=== PATIENT | male | born 1975 | race Two or more races ===

== ENCOUNTER 2019-01-12 16:06 | Emergency (ER) | payer OTHER ==
[~2019-01-12] VITALS: Ht 193 cm; Wt 96.9 kg
--- NOTE | 2019-01-12 16:53 | NUR ---
PT HAS CO OF RIGHT LEG SWELLING SINCE THURSDAY. PT WAS SEEN BY MEDIC IN HIS FACILITY AND STATES "WANT TO RULE OUT A DVT". RED SWOLLEN AREA ON BAKER OUTLINED W MARKER. LEFT LEG EDEMA GREATER THAN RIGHT LEG. PT STATES THERE IS ONLY PAIN WHEN WALKING. PEDAL PULSES PRESENT. SENSATION INTACT. PT RESTING COMFORTABLE. SUPERVISED BY LAW ENFORCEMENT.
[2019-01-12 16:56] LABS: BASOPHILS # (AUTO) 0.09 x10^3/uL (0-0.1); BASOPHILS % (AUTO) 1 % (0-1); EOSINOPHILS # (AUTO) 0.23 x10^3/uL (0-0.4); EOSINOPHILS % (AUTO) 2 % (1-7); LYMPHOCYTES # (AUTO) 2.48 x10^3/uL (1-3.4); LYMPHOCYTES % (AUTO) 26 % (22-44); MD NO; MEAN CORPUSCULAR HEMOGLOBIN 30.4 pg (27.5-34.5); MEAN CORPUSCULAR HGB CONC 33.5 g/dL (33.2-36.2); MEAN CORPUSCULAR VOLUME 90.8 fL (81-97); MEAN PLATELET VOLUME 9.3 fL (7.4-10.4); MONOCYTES # (AUTO) 0.64 x10^3/uL (0.2-0.8); MONOCYTES % (AUTO) 7 % (2-9); NEUTROPHILS # (AUTO) 6.14 x10^3/uL (1.8-6.8); NEUTROPHILS % (AUTO) 64 % (42-75); PLATELET COUNT 274 x10^3/uL (130-400); RED BLOOD COUNT 5.39 x10^6/uL (4.38-5.82); RED CELL DISTRIBUTION WIDTH 13.1 % (9.4-14.8)
[2019-01-12] MEDS ORDERED: ATEN100T PO (16:56)
[2019-01-12 17:09] LABS: ALBUMIN 4.1 g/dL (3.4-5.0); ANION GAP 4 mmol/L (5-15); CALCIUM 8.9 mg/dL (8.5-10.1); CHLORIDE 109 mmol/L (98-107)
[2019-01-12 17:13] LABS: ALANINE AMINOTRANSFERASE 47 U/L (12-78); ALKALINE PHOSPHATASE 88 U/L (45-117); BILIRUBIN,TOTAL 0.4 mg/dL (0.2-1.0); CREATININE 1.09 mg/dL (0.7-1.3); TOTAL PROTEIN 7.7 g/dL (6.4-8.2)
--- NOTE | 2019-01-12 18:28 | NUR ---
ASSUMED CARE OF PT FOR DISCHARGE. PT DISCHARGE WITH LAW ENFORCEMENT. DISCUSSED RX AND FOLLOW UP. PT VERBALIZED UNDERSTAND. PT UP AMBULATORY AND STABLE ON FEET.
[2019-01-12 18:29] VITALS: BP 141/76
== END 2019-01-12 18:31 | disposition home or self-care (01) ==
LOC: ED 18:25
DX: I80.8 Phlebitis and thrombophlebitis of other sites (principal); L03.116 Cellulitis of left lower limb
CPT/HCPCS: 36415; 80053; 85025; 99284

== ENCOUNTER 2019-01-27 16:57 | Emergency (ER) | payer OTHER ==
[~2019-01-27] VITALS: Ht 193 cm; Wt 125.9 kg
[~2019-01-27 16:57] MED LIST: ATEN100T PO
--- NOTE | 2019-01-27 18:30 | NUR ---
PT TO ED ROOM 16 FROM LOBBY AT THIS TIME IN CUSTODY OF OFFICER
--- NOTE | 2019-01-27 18:33 | NUR ---
PT REPORTS LEFT LEG PAIN SINCE 01/12/19, WAS SEEN IN ED ON THAT DATE & DVT WAS RULED OUT. PT RETURNS TO D/T CONTINUED PAIN. PMH: HTN, SVT
--- NOTE | 2019-01-27 18:39 | NUR ---
PT REPORTS L CALF PAIN AT 03/22. VSAditi. TRESA SWENSON, AT BEDSIDE.
--- NOTE | 2019-01-27 18:53 | NUR ---
BEDSIDE REPORT TO RN TIN & SANDRA, PT CARE TRANSFERRED AT THIS TIME. PT IN BED, OFFICER AT BEDSIDE, AWAITING LABS, US AND DISPO.
--- NOTE | 2019-01-27 18:57 | NUR ---
REPORT GIVEN TO PM RN BY PAULA.
[2019-01-27 19:07] LABS: BASOPHILS # (AUTO) 0.04 x10^3/uL (0-0.1); BASOPHILS % (AUTO) 0 % (0-1); EOSINOPHILS # (AUTO) 0.16 x10^3/uL (0-0.4); EOSINOPHILS % (AUTO) 2 % (1-7); LYMPHOCYTES # (AUTO) 2.53 x10^3/uL (1-3.4); LYMPHOCYTES % (AUTO) 25 % (22-44); MD NO; MEAN CORPUSCULAR HGB CONC 33.1 g/dL (33.2-36.2); MEAN CORPUSCULAR VOLUME 90.5 fL (81-97); MEAN PLATELET VOLUME 8.2 fL (7.4-10.4); MONOCYTES # (AUTO) 0.69 x10^3/uL (0.2-0.8); MONOCYTES % (AUTO) 7 % (2-9); NEUTROPHILS # (AUTO) 6.91 x10^3/uL (1.8-6.8); NEUTROPHILS % (AUTO) 67 % (42-75); PLATELET COUNT 418 x10^3/uL (130-400); RED BLOOD COUNT 5.24 x10^6/uL (4.38-5.82); RED CELL DISTRIBUTION WIDTH 12.6 % (9.4-14.8)
[2019-01-27 19:16] LABS: INTERNATIONAL NORMALIZED RATIO 1.02 (0.93-1.1); PROTHROMBIN TIME 10.7 Seconds (9.6-11.5)
[2019-01-27 19:19] LABS: ALANINE AMINOTRANSFERASE 54 U/L (12-78); ALBUMIN 3.9 g/dL (3.4-5.0); ANION GAP 4 mmol/L (5-15); CALCIUM 9.3 mg/dL (8.5-10.1); CHLORIDE 107 mmol/L (98-107); CREATININE 1.04 mg/dL (0.7-1.3)
[2019-01-27 19:21] LABS: ALKALINE PHOSPHATASE 84 U/L (45-117); BILIRUBIN,TOTAL 0.4 mg/dL (0.2-1.0)
[2019-01-27 20:22] VITALS: BP 157/97
--- NOTE | 2019-01-27 20:22 | NUR ---
PATIENT CLEARED FOR DISCHARGE. NO NOTED ACUTE DISTRESS. AMBULATORY WITHOUT COMPLICATIONS TO WAITING ROOM IN CUSTODY
== END 2019-01-27 20:27 | disposition home or self-care (01) ==
LOC: ED 20:16
DX: I80.02 Phlebitis and thrombophlebitis of superficial vessels of left lower extremity (principal); I10 Essential (primary) hypertension
CPT/HCPCS: 36415; 80053; 85025; 85610; 85730; 99284

== ENCOUNTER 2019-02-21 09:35 | Outpatient (CLI) | payer OTHER | END 2019-02-21 23:59 | disposition home or self-care (01) | LOC: RAD 09:35 | PROVIDERS: ATTEND Family Medicine Adult Medicine | DX: I80.02 Phlebitis and thrombophlebitis of superficial vessels of left lower extremity (principal) ==